=== PATIENT | female | born 1985 | race African-American/Black ===

== ENCOUNTER 2018-12-30 21:11 | Emergency (ER) | payer SELFPAY ==
--- NOTE | 2018-12-30 21:36 | EDPHYS ---
Physician Documentation [facility] Name: Kayce Ruiz Age: 33 yrs Sex: Female : 1985 Arrival Date: 12/30/2018 Time: 21:14 Bed 12 Private MD: ED Physician Tom Perez HPI: 12/30 21:34 This 33 yrs old Black Female presents to ER via Ambulatory with complaints of Ear Pain. kb 21:34 The patient presents with a foreign body sensation, pain. The complaints affect the kb right ear and left ear. Onset: The symptoms/episode began/occurred 4 month(s) ago. Modifying factors: The symptoms are alleviated by nothing, the symptoms are aggravated by touching. Associated signs and symptoms: The patient has no apparent associated signs or symptoms. Severity of symptoms: At their worst the symptoms were moderate in the emergency department the symptoms are unchanged. The patient has not experienced similar symptoms in the past. The patient has not recently seen a physician. APPLICATIONS SPECIALIST: 21:30 LMP 09/2018 fc Historical: - Allergies: 21:30 No Known Allergies; fc - Home Meds: 21:30 None [Active]; fc - PMHx: 21:30 None; fc - PSHx: 21:30 None; fc - Immunization history:: Last tetanus immunization: unknown, Flu vaccine is not up to date. - Social history:: Smoking status: Patient uses tobacco products, denies chronic smoking, but will smoke occasionally, Patient/guardian denies using alcohol, street drugs. - Ebola Screening: : Patient negative for fever greater than or equal to 101.5 degrees Fahrenheit, and additional compatible Ebola Virus Disease symptoms Patient denies exposure to infectious person Patient denies travel to an Ebola-affected area in the 21 days before illness onset. ROS: 21:34 Constitutional: Negative for fever, chills, and weight loss, Neck: Negative for injury, kb pain, and swelling, Cardiovascular: Negative for chest pain, palpitations, and edema, Respiratory: Negative for shortness of breath, cough, wheezing, and pleuritic chest pain, Abdomen/GI: Negative for abdominal pain, nausea, vomiting, diarrhea, and constipation, MS/Extremity: Negative for injury and deformity, Skin: Negative for injury, rash, and discoloration, Neuro: Negative for headache, weakness, numbness, tingling, and seizure. 21:34 ENT: Positive for ear pain. Exam: 21:34 Constitutional: This is a well developed, well nourished patient who is awake, alert, kb and in no acute distress. Head/Face: Normocephalic, atraumatic. Neck: Trachea midline, no thyromegaly or masses palpated, and no cervical lymphadenopathy. Supple, full range of motion without nuchal rigidity, or vertebral point tenderness. No Meningismus. Chest/axilla: Normal chest wall appearance and motion. Nontender with no deformity. No lesions are appreciated. Cardiovascular: Regular rate and rhythm with a normal S1 and S2. No gallops, murmurs, or rubs. Normal PMI, no JVD. No pulse deficits. Respiratory: Lungs have equal breath sounds bilaterally, clear to auscultation and percussion. No rales, rhonchi or wheezes noted. No increased work of breathing, no retractions or nasal flaring. Abdomen/GI: Soft, non-tender, with normal bowel sounds. No distension or tympany. No guarding or rebound. No evidence of tenderness throughout. Skin: Warm, dry with normal turgor. Normal color with no rashes, no lesions, and no evidence of cellulitis. MS/ Extremity: Pulses equal, no cyanosis. Neurovascular intact. Full, normal range of motion. Neuro: Awake and alert, GCS 15, oriented to person, place, time, and situation. Cranial nerves II-XII grossly intact. Motor strength 5/5 in all extremities. Sensory grossly intact. Cerebellar exam normal. Normal gait. 21:34 ENT: External ear(s): are unremarkable, Ear canal(s): swelling, that is moderate, bilaterally, TM's: are normal, Nose: is normal. Vital Signs: 21:30 BP 150 / 99; Pulse 79; Resp 18; Temp 98.8(TE); Pulse Ox 100% on R/A; Weight 54.75 kg fc (M); Height 5 ft. 4 in. (162.56 cm) (R); Pain 10/10; 21:30 Body Mass Index 20.72 (54.75 kg, 162.56 cm) fc MDM: 21:27 Patient medically screened. kb 21:33 Data reviewed: vital signs, nurses notes. Data interpreted: Pulse oximetry: on room air kb is 100 %. Interpretation: normal. Counseling: I had a detailed discussion with the patient and/or guardian regarding: the historical points, exam findings, and any diagnostic results supporting the discharge/admit diagnosis, the need for outpatient follow up, an ENT specialist, to return to the emergency department if symptoms worsen or persist or if there are any questions or concerns that arise at home. Administered Medications: No medications were administered Disposition: 23:17 Co-signature as Attending Physician, Tom Perez MD. Disposition: 12/30/18 21:35 Discharged to Home. Impression: Unspecified otitis externa, bilateral. - Condition is Stable. - Discharge Instructions: Otitis Externa, [id number], Ear Drops, Adult, [id number]. - Prescriptions for Ciprodex 0.3- 0.1 % Otic Drops, Suspension - instill 4 drop by OTIC route every 12 hours for 7 days , for ears ONLY; 1 Container. - Medication Reconciliation Form, Thank You Letter, Antibiotic Education, Prescription Opioid Use form. - Follow up: Emergency Department; When: As needed; Reason: Worsening of condition. Follow up: Private Physician; When: 2 - 3 days; Reason: Recheck today's complaints, Continuance of care, Re-evaluation by your physician. Signatures: Shanti Coles, MADALYN SMITH-Minerva Hallman RN RN Butch Frost RN RN jb4 Tom Perez MD MD Corrections: (The following items were deleted from the chart) 21:39 21:35 12/30/2018 21:35 Discharged to Home. Impression: Unspecified otitis externa, jb4 bilateral. Condition is Stable. Forms are Medication Reconciliation Form, Thank You Letter, Antibiotic Education, Prescription Opioid Use. Follow up: Emergency Department; When: As needed; Reason: Worsening of condition. Follow up: Private Physician; When: 2 - 3 days; Reason: Recheck today's complaints, Continuance of care, Re-evaluation by your physician. kb
--- NOTE | 2018-12-30 21:36 | ER ---
Nurse's Notes [facility] Name: Kayce Ruiz Age: 33 yrs Sex: Female : 1985 Arrival Date: 12/30/2018 Time: 21:14 Bed 12 Private MD: Diagnosis: Unspecified otitis externa, bilateral Presentation: 12/30 21:29 Presenting complaint: Patient states: that she is having ear pain. Left worse than fc right. Started last Transition of care: patient was not received from another setting of care. Onset of symptoms was August 2018. Risk Assessment: Do you want to hurt yourself or someone else? Patient reports no desire to harm self or others. Initial Sepsis Screen: Does the patient meet any 2 criteria? No. Patient's initial sepsis screen is negative. Does the patient have a suspected source of infection? No. Patient's initial sepsis screen is negative. Care prior to arrival: None. 21:29 Method Of Arrival: Ambulatory 21:29 Acuity: ALEXA 5 fc CASE MANAGEMENT RN: 21:30 [facility] 09/2018 Historical: - Allergies: 21:30 No Known Allergies; fc - Home Meds: 21:30 None [Active]; fc - PMHx: 21:30 None; fc - PSHx: 21:30 None; fc - Immunization history:: Last tetanus immunization: unknown, Flu vaccine is not up to date. - Social history:: Smoking status: Patient uses tobacco products, denies chronic smoking, but will smoke occasionally, Patient/guardian denies using alcohol, street drugs. - Ebola Screening: : Patient negative for fever greater than or equal to 101.5 degrees Fahrenheit, and additional compatible Ebola Virus Disease symptoms Patient denies exposure to infectious person Patient denies travel to an Ebola-affected area in the 21 days before illness onset. Screenin:31 Abuse screen: Denies threats or abuse. Nutritional screening: No deficits noted. fc Tuberculosis screening: No symptoms or risk factors identified. Fall Risk None identified. Assessment: 21:34 General: Appears in no apparent distress. uncomfortable, Behavior is calm, cooperative, jb4 appropriate for age. Pain: Complains of pain in right ear and left ear Pain does not radiate. Pain currently is 6 out of 10 on a pain scale. Neuro: Level of Consciousness is awake, alert, obeys commands, Oriented to person, place, time, situation. Cardiovascular: Patient's skin is warm and dry. Respiratory: Airway is patent Respiratory effort is even, unlabored, Respiratory pattern is regular, symmetrical. GI: No signs and/or symptoms were reported involving the gastrointestinal system. : No signs and/or symptoms were reported regarding the genitourinary system. EENT: Throat is clear is pink Reports pain in left ear and right ear. Derm: Skin is intact, Skin is dry, Skin is normal, Skin temperature is warm. Musculoskeletal: Circulation, motion, and sensation intact. Vital Signs: 21:30 BP 150 / 99; Pulse 79; Resp 18; Temp 98.8(TE); Pulse Ox 100% on R/A; Weight 54.75 kg fc (M); Height 5 ft. 4 in. (162.56 cm) (R); Pain 10/10; 21:30 Body Mass Index 20.72 (54.75 kg, 162.56 cm) ED Course: 21:14 Patient arrived in ED. es 21:16 Shanti Coles FNP-C is [facility]. kb 21:16 Tom Perez MD is Attending Physician. kb 21:28 Butch Traore, RN is Primary Nurse. jb4 21:29 Triage completed. fc 21:30 Arm band placed on Patient placed in an exam room, on a stretcher. fc 21:31 Patient has correct armband on for positive identification. Call light in reach. fc 21:38 No provider procedures requiring assistance completed. Patient did not have IV access jb4 during this emergency room visit. Administered Medications: No medications were administered Outcome: 21:35 Discharge ordered by . kb 21:38 Discharged to home ambulatory. jb4 21:38 Condition: stable 21:38 Discharge instructions given to patient, family, Instructed on discharge instructions, follow up and referral plans. medication usage, Demonstrated understanding of instructions, follow-up care, medications, Prescriptions given X 1. 21:39 Patient left the ED. jb4 Signatures: Shanti Coles FNP-C FNP-Ckb Salyer, Edna es Chretien, Felicia, RN RN Butch Traore, RN RN jb4
== END 2018-12-30 21:39 | disposition home or self-care (01) ==
LOC: ER 21:11
DX: H60.93 Unspecified otitis externa, bilateral (principal)
CPT/HCPCS: 99282

== ENCOUNTER 2019-03-22 19:01 | Emergency (ER) | payer SELFPAY ==
--- OUTSIDE RECORDS SUMMARY | 2019-03-22 19:03 | XMS REPORT ---
:1985 [facility] Address [address] [place] [address] Dr. Lemon. [address] [place] [id number] Care Team Providers Name Role Phone Unavailable Unavailable Unavailable Problems This patient has no known problems. Allergies, Adverse Reactions, Alerts This patient has no known allergies or adverse reactions. Medications This patient has no known medications.
[2019-03-22] MEDS ORDERED: HYDROCODONE/APAP 5/325 MG TAB ONE (19:49)
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
== END 2019-03-22 20:32 | disposition home or self-care (01) ==
LOC: ER 19:01
DX: T20.57XA Corrosion of first degree of neck, initial encounter (principal); T65.891A Toxic effect of other specified substances, accidental (unintentional), initial encounter; Y92.89 Other specified places as the place of occurrence of the external cause
CPT/HCPCS: 99283

== ENCOUNTER 2024-11-19 21:10 | Emergency (ER) | payer SELFPAY ==
--- OUTSIDE RECORDS SUMMARY | 2024-11-19 21:13 | XMS REPORT | Continuity of Care Document ---
Author Name Unknown Address [address] [facility] [address] [place] [id number] [facility] [address] [facility] [address] [place] [address] Care Team Providers Care Supervisor Cartography Name Role Phone PCP, PATIENT DOES NOT HAVE A Primary Care Physic saray ALESIA Rose Attending Clinician Unavailable [email or web address] Attending Clinician Unavaila ble [email or web address] Admitting Clinician Unavaila ble Payers Payer Name Policy Type Policy Number Effective Date Expirati on Date Source [id number] 2019 00:00:00 Allergies, Adverse Reactions, Alerts Allergy Name Allergy Type Status Severity Reaction(s) Onset Date Inactive Date Treating Clinician Comments Source NO KNOWN ALLERGIE S Drug Class Active [facility] Social History Social Habit Start Date Stop Date Quantity Comments Source Sexual [facility] Tobacco use and exposure 2024-04-09 00:00:00 2024-04-09 00:00:00 User of smokeless tobacco [facility] Alcoholic beverage intake 2024-04-09 00:00:00 2024-04-09 00:00:00 Lifetime non-drinker (finding) [facility] History of Social function 2024-04-09 00:00:00 2024-04-09 00:00:[address] [facility] Tobacco Comment 2024-04-09 00:00:00 2024-04-09 00:00:00 Daily vaping x [address] [facility] Sex assigned at 1985 00:00:00 1985 00:00:[address] [facility] Smoking Status Start Date Stop Date Source Never smoked tobacco [facility] Medications Ordered Medication Name Filled Medication Name Start Date Stop Date Current Medication? Ordering Clinician Indication Dosage Frequency Signature (SIG) Comments Components Source metroNIDAZO LE 500 mg tablet 04-13 00:00: 00 Yes [id number] 500mg Take 1 tablet by mouth every 12 (twelve) hours. [facility] Vital Signs Vital Name Observation Time Observation Value Comments S mata Systolic blood pressure 2024-04-09 14:53:00 140 mm[Hg] [facility] Diastolic blood pressure 2024-04-09 14:53:00 83 mm[Hg] [facility] Heart rate 2024-04-09 14:40:00 80 /min [facility] Body temperature 2024-04-09 14:40:[address] [facility] Respiratory rate 2024-04-09 14:40:00 18 /min [facility] Body height 2024-04-09 14:40:00 167.6 cm [facility] Body weight 2024-04-09 14:40:00 80.015 kg [facility] BMI 2024-04-09 14:40:00 28.47 kg/m2 [facility] Encounters Start Date/Time End Date/Time Encounter Type Admission Type Attending [facility] Care Facility Care Department Encounter ID Source 2024-07-14 09:15:00 2024-07-14 09:15:00 Outpatient ALESIA ROTHMAN [facility] [id number] [facility] 2024-04-13 00:00:00 2024-04-13 09:07:03 Telephone Alesia Higgins [facility] [id number] [facility] 2024-04-09 09:30:00 2024-04-09 10:41:12 Outpatient ALESIA ROTHMAN [facility] [id number] [facility] 2024-04-09 09:30:00 2024-04-09 10:41:12 Office Visit Alesia Higgins [facility] [id number] [facility] 2023-08-15 00:00:00 2023-08-15 00:00:00 Outpatient [email or web address] clara_Delmar [facility] [id number] [facility]
[2024-11-19] MEDS ORDERED: ONDANSETRON 4 MG/2 ML VIAL ONE (21:31)
[2024-11-19] MEDS ORDERED: NA CHLORIDE 0.9% 1,000 ML ONE (21:31)
[2024-11-19 21:35] LABS: Absolute Basophils 0.1 K/uL (0-0.5); Absolute Eosinophils 0.3 K/uL (0-0.5); Absolute Lymphocytes (CBC) 3.9 K/uL (0.7-4.9); Absolute Monocytes 0.6 K/uL (0.1-1.3); Absolute Neutrophil 7.9 K/uL (1.8-8.0); Basophils % 0.6 % (0-1.3); Eosinophils % 2.3 % (0-4.4); Hematocrit 33.3 % (36.0-45.0); Hemoglobin 11.3 g/dL (12.0-15.0); Lymphocytes % 30.4 % (15.3-44.8); MCH 31.1 pg (27.0-35.0); MCV 91.4 fL (80-100); MPV 8.3 fL (7.6-11.3); Neutrophils % 61.7 % (41.7-73.7); Platelets 306 thou/uL (152-406); RBC Red Blood Cell Count 3.65 M/uL (3.86-4.86); Red Cell Distribution Width 13.3 % (12.1-15.2)
[2024-11-20 00:09] LABS: Specific Gravity 1.013 (1.005-1.030); Urine Bacteria <20 /HPF (<20); Urine Bilirubin NEGATIVE (Negative); Urine Blood Negative (Negative); Urine Clarity Turbid (Clear); Urine Color Colorless (Yellow); Urine Culture Reflex Order NOT NEEDED; Urine Glucose NEGATIVE (Negative); Urine Ketones NEGATIVE (Negative); Urine Microscopic Reflex YN ORDER UMIC; Urine Mucus Slight /HPF (None Seen); Urine Nitrite NEGATIVE (Negative); Urine Protein NEGATIVE (Negative); Urine RBC <5 /HPF (None Seen); Urine Urobilinogen Normal (Normal); Urine WBC <5 /HPF (<5); Urine pH 6.5 (5.0-7.0)
[2024-11-20 00:23] LABS: Barbiturates NEGATIVE (NEGATIVE); Benzodiazepines NEGATIVE (NEGATIVE); Cocaine NEGATIVE (NEGATIVE); METHAMPHETAM NEGATIVE (NEGATIVE); Methadone NEGATIVE (NEGATIVE); Opiates NEGATIVE (NEGATIVE); Phencyclidine NEGATIVE (NEGATIVE); THC Cannibis POSITIVE (NEGATIVE)
[2024-11-20] MEDS ORDERED: POTASSIUM CL SA 10 MEQ TAB PO ONE (00:30)
--- NOTE | 2024-11-20 00:43 | EDPHYS ---
Physician Documentation [facility] Name: Kayce Ruiz Age: 38 yrs Sex: Female : 1985 Arrival Date: 11/19/2024 Time: 21:10 Bed 8 Private MD: ED Physician Solomon Hernandez HPI: 11/19 21:34 This 38 yrs old Black Female presents to ER via EMS with complaints of Nausea/Vomiting bo1 - ingesting ETOH \\T\\ THC. 11/20 00:29 The patient presents to the emergency department with nausea, vomiting. Onset: The bo1 symptoms/episode began/occurred just prior to arrival. Associated signs and symptoms: Pertinent negatives: abdominal pain. Pt took an edible of THC and drank some ETOH. 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 - Infectious Disease History:: Denies. - Social history:: Smoking status: Patient denies any tobacco usage or history of. Patient uses gummies. ROS: 11/20 00:31 Constitutional: Negative for fever, chills, and weight loss bo1 Cardiovascular: Negative for chest pain, Respiratory: Negative for shortness of breath, Abdomen/GI: Positive for nausea and vomiting, Negative for abdominal pain, MS/extremity: Negative for pain, Skin: Negative for rash, All other systems are negative, Exam: 11/19 21:33 ECG was reviewed by the Attending Physician. bo1 11/20 00:37 Constitutional: This is a well developed, well nourished patient who is awake, alert, bo1 and in acute distress. Constitutional: The patient appears alert, awake, non-toxic, in obvious distress, mildly distressed, Neck: Exam negative for acute changes, Cardiovascular: Rate: normal, Rhythm: regular, Pulses: no pulse deficits are appreciated, Respiratory: the patient does not display signs of respiratory distress, Respirations: normal, Breath sounds: are clear throughout, Abdomen/GI: Palpation: abdomen is soft and non-tender, Neuro: Orientation: is normal, Mentation: is normal, Slightly sedate and "slow" due to the combination of THC and ETOH, Vital Signs: 11/19 21:10 BP 134 / 86; Pulse 77; Resp 15; Temp 98.5; Pulse Ox 100% ; Weight 77.11 kg; Height 5 bm8 ft. 4 in. ; Pain 0/10; 23:09 BP 150 / 92; Pulse 94; Resp 17; Temp 98.5; Pulse Ox 100% ; Pain 0/10; 8 11/20 00:16 BP 137 / 86; Pulse 88; Resp 18; Temp 98.5; Pulse Ox 100% on R/A; Pain 0/10; 8 00:58 BP 133 / 79; Pulse 90; Resp 18; Temp 98.5; Pulse Ox 100% ; Pain 0/10; 8 11/19 21:10 Body Mass Index 29.18 (77.11 kg, 162.56 cm) [facility] 11/19 21:10 Pain Scale: Adult bm8 23:09 Pain Scale: Adult 8 11/20 00:16 Pain Scale: Adult bm8 00:58 Pain Scale: Adult bm8 [place] Coma Score: 11/19 21:36 Eye Response: spontaneous(4). Motor Response: obeys commands(6). Verbal Response: bm8 oriented(5). Total: 15. 23:09 Eye Response: spontaneous(4). Motor Response: obeys commands(6). Verbal Response: bm8 oriented(5). Total: 15. 11/20 00:58 Eye Response: spontaneous(4). Motor Response: obeys commands(6). Verbal Response: bm8 oriented(5). Total: 15. MDM: 11/19 21:14 Medical Screening Exam initiated bo1 11/20 00:38 Differential diagnosis: Polychemical ingestion with symptoms. Data reviewed: vital bo1 signs, lab test result(s). Medication response: Response to treatment: the patient's symptoms have markedly improved after treatment. ED course: Pt is more alert and is detoxing and due to ETOH less than 80 she can be discharged. 11/19 21:16 Order name: Basic Metabolic Panel; Complete Time: 00:28 bo1 11/19 21:16 Order name: CBC with Diff; Complete Time: 00:28 bo1 11/19 21:16 Order name: Troponin HS; Complete Time: 00: 11/19 21:16 Order name: Urinalysis w/ reflexes; Complete Time: : 11/19 21:16 Order name: UDS; Complete Time: :11/19 21:16 Order name: ETOH Level; Complete Time: 00: 11/19 21:16 Order name: EKG; Complete Time: 21:17 11/19 21:16 Order name: Cardiac monitoring; Complete Time: : 11/19 21:16 Order name: EKG - Nurse/Tech; Complete Time: : 11/19 21:16 Order name: IV Saline Lock; Complete Time: 11/19 21:16 Order name: Labs collected and sent; Complete Time: EC/31 21:33 Rate is 73 beats/min. Rhythm is regular. QRS [place] is Normal. IL interval is normal. QRS bo1 interval is normal. QT interval is normal. No Q waves. T waves are Normal. No ST changes noted. Clinical impression: NSR w/ Non-specific ST/T Changes. Interpreted by me. Reviewed by me. Administered Medications: 21:36 Drug: Ondansetron IVP 4 mg IVP once; over 2 minutes Route: IVP; Site: right antecubital;8 11/20 00:34 Follow up: Response: No adverse reaction [facility] 11/19 21:36 Drug: NS 0.9% IV 1000 ml IV at 1 bolus Per protocol; to be given as a bolus over 60 bm8 minutes Route: IV; Rate: 1 bolus; Site: right antecubital; 11/20 00:34 Follow up: Response: No adverse reaction; IV Status: Completed infusion; IV Intake: bm8 1000ml 00:33 Drug: Potassium Chloride PO 40 mEq PO once Route: PO; bm8 00:59 Follow up: Response: No adverse reaction bm8 Disposition Summary: 11/20/24 00:42 Discharge Ordered Notes: Location: Home bo1 Problem: new bo1 Symptoms: have improved bo1 Condition: Stable bo1 Diagnosis - Alcohol abuse with intoxication bo1 - Adverse effect of other psychotropic drugs bo1 - Nausea with vomiting, unspecified bo1 Followup: bo1 - With: Private Physician - When: Upon discharge from the Emergency Department - Reason: If symptoms return, Recheck today's complaints, Continuance of care Discharge Instructions: - Discharge Summary Sheet bo1 - Nausea and Vomiting, Adult bo1 - Accidental Drug Poisoning, Adult bo1 - Alcohol Intoxication, [id number] bo1 Forms: - Medication Reconciliation Form bo1 - Antibiotic Education bo1 - Prescription Opioid Use bo1 - Patient Portal Instructions bo1 - Leadership Thank You Letter bo1 Prescriptions: - ondansetron 8 mg Oral Tablet,disintegrating - take 1 tablet ORAL route every 8 hours; 15 tablet; Refills: 0, Product bo1 Selection Permitted Signatures: Dispatcher [employer] EDMS Solomon Hernandez MD MD bo1 Sagar Turner, RN RN bm8 Corrections: (The following items were deleted from the chart) 11/19 21:17 21:16 BASIC METABOLIC PANEL+C.LAB.BRZ ordered. EDMS EDMS 21:17 21:16 CBC+H.LAB.BRZ ordered. EDMS EDMS 21:17 21:16 Troponin High Sensitivity+C.LAB.BRZ ordered. EDMS EDMS 21:17 21:16 Urinalysis+U.LAB.BRZ ordered. EDMS EDMS 21:17 21:16 URINE DRUG SCREEN+UC.LAB.BRZ ordered. EDMS EDMS
--- NOTE | 2024-11-20 00:43 | ER ---
Nurse's Notes [facility] Name: Kayce Ruiz Age: 38 yrs Sex: Female : 1985 Arrival Date: 11/19/2024 Time: 21:10 Bed 8 Private MD: Diagnosis: Alcohol abuse with intoxication;Adverse effect of other psychotropic drugs;Nausea with vomiting, unspecified Presentation: 11/19 21:10 Chief complaint: EMS states: pt ate some gummies for the first time,reports n/v and ams bm8 but will answer name and obey commands. 21:10 Coronavirus screen: At this time, the client does not indicate any symptoms associated bm8 with coronavirus-19. Ebola Screen: Patient negative for fever greater than or equal to 101.5 degrees Fahrenheit, and additional compatible Ebola Virus Disease symptoms Patient denies exposure to infectious person. Patient denies travel to an Ebola-affected area in the 21 days before illness onset. No symptoms or risks identified at this time. Initial Sepsis Screen: Does the patient meet any 2 criteria? No. Patient's initial sepsis screen is negative. Does the patient have a suspected source of infection? No. Patient's initial sepsis screen is negative. Risk Assessment: Do you want to hurt yourself or someone else? Patient reports no desire to harm self or others. Onset of symptoms was November 19, 2024 at 19:00. 21:10 Method Of Arrival: EMS: [facility] bm8 21:10 Acuity: ALEXA 3 bm8 Triage Assessment: 21:34 General: Appears in no apparent distress. comfortable, Behavior is calm, cooperative, bm8 appropriate for age. Pain: Denies pain. EENT: No deficits noted. No signs and/or symptoms were reported regarding the EENT system. Neuro: Level of Consciousness is awake, obeys commands, stuporous, Oriented to person, situation. Cardiovascular: Denies chest pain, Heart tones S1 S2 present Capillary refill < 3 seconds in bilateral fingers Patient's skin is warm and dry. Rhythm is sinus rhythm. Respiratory: Airway is patent Trachea midline Respiratory effort is even, unlabored, Respiratory pattern is regular, symmetrical, Breath sounds are clear bilaterally. GI: Abdomen is flat, non-distended, Bowel sounds present X 4 quads. Abd is soft and non tender Reports nausea, vomiting. : No signs and/or symptoms were reported regarding the genitourinary system. Derm: No signs and/or symptoms reported regarding the dermatologic system. Musculoskeletal: No signs and/or symptoms reported regarding the musculoskeletal system. 11/20 00:16 General: Appears in no apparent distress. comfortable, Behavior is calm, cooperative, bm8 appropriate for age, drowsy, quiet. Pain: Denies pain. EENT: No deficits noted. No signs and/or symptoms were reported regarding the EENT system. Neuro: Level of Consciousness is awake, obeys commands, Oriented to person, place, situation. Neuro: Cardiovascular: Denies chest pain, Heart tones S1 S2 present Capillary refill Patient's skin is warm and dry. Rhythm is sinus rhythm. GI: Abdomen is flat, non-distended, Bowel sounds present X 4 quads. Abd is soft and non tender X 4 quads. Reports nausea, Reports nausea has improved. : No signs and/or symptoms were reported regarding the genitourinary system. Derm: No signs and/or symptoms reported regarding the dermatologic system. Musculoskeletal: No signs and/or symptoms reported regarding the musculoskeletal system. 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 - Infectious Disease History:: Denies. - Social history:: Smoking status: Patient denies any tobacco usage or history of. Patient uses gummies. Screenin:[address] [facility] ED Fall Risk Assessment (Adult) History of falling in the last 3 months, bm8 including since admission No falls in past 3 months (0 pts) Confusion or Disorientation Yes (5 pts) Intoxicated or Sedated Yes (3 pts) Impaired Gait Yes (1 pt) Mobility Assist Device Used No (0 pt) Altered Elimination No (0 pt) Score/Fall Risk Level 3 or more points = High Risk Oriented to surroundings, Maintained a safe environment, Educated pt \T\ family on fall prevention, incl call for assistance when getting out of bed, Assessed \T\ reinforced patient's understanding of fall precautions, Hourly rounding (assess needs \T\ fall precautionary measures) done, Used ambulatory aids as needed (educated on \T\ assisted with), Used gait belt as appropriate Implemented a Fall Risk Plan of Care. Abuse screen: Denies threats or abuse. Nutritional screening: No deficits noted. Tuberculosis screening: No symptoms or risk factors identified. Assessment: 23:09 Reassessment: Patient appears in no apparent distress at this time. Patient and/or bm8 family updated on plan of care and expected duration. Pain level reassessed. Patient is alert, oriented x 3, equal unlabored respirations, skin warm/dry/pink. Patient denies pain at this time. Patient states feeling better. Patient states symptoms have improved. GI: Patient currently denies nausea, pain, vomiting. 11/20 00:34 Reassessment: Patient appears in no apparent distress at this time. Patient and/or bm8 family updated on plan of care and expected duration. Pain level reassessed. Patient is alert, oriented x 3, equal unlabored respirations, skin warm/dry/pink. Patient denies pain at this time. Patient states feeling better. Patient states symptoms have improved. GI: Patient currently denies nausea, pain, vomiting. Vital Signs: 11/19 21:10 BP 134 / 86; Pulse 77; Resp 15; Temp 98.5; Pulse Ox 100% ; Weight 77.11 kg; Height 5 bm8 ft. 4 in. ; Pain 0/10; 23:09 BP 150 / 92; Pulse 94; Resp 17; Temp 98.5; Pulse Ox 100% ; Pain 0/10; 8 11/20 00:16 BP 137 / 86; Pulse 88; Resp 18; Temp 98.5; Pulse Ox 100% on R/A; Pain 0/10; bm8 00:58 BP 133 / 79; Pulse 90; Resp 18; Temp 98.5; Pulse Ox 100% ; Pain 0/10; [facility] 11/19 21:10 Body Mass Index 29.18 (77.11 kg, 162.56 cm) [facility] 11/19 21:10 Pain Scale: Adult bm8 23:09 Pain Scale: Adult bm8 11/20 00:16 Pain Scale: Adult bm8 00:58 Pain Scale: Adult bm8 [place] Coma Score: 11/19 21:36 Eye Response: spontaneous(4). Motor Response: obeys commands(6). Verbal Response: bm8 oriented(5). Total: 15. 23:09 Eye Response: spontaneous(4). Motor Response: obeys commands(6). Verbal Response: bm8 oriented(5). Total: 15. 11/20 00:58 Eye Response: spontaneous(4). Motor Response: obeys commands(6). Verbal Response: bm8 oriented(5). Total: 15. ED Course: 11/19 21:13 Patient arrived in ED. vc1 21:14 Solomon Hernandez MD is Attending Physician. bo1 21:31 Sagar Turner, JUAN C is Primary Nurse. bm8 21:33 Triage completed. bm8 21:34 Arm band placed on left wrist. bm8 21:36 Patient has correct armband on for positive identification. Placed in gown. Bed in low bm8 position. Call light in reach. Side rails up X2. Client placed on continuous cardiac and pulse oximetry monitoring. NIBP monitoring applied. town manager on. Pulse ox on. NIBP on. Door closed. Noise minimized. Warm blanket given. Pillow given. Verbal reassurance given. Head of bed elevated. 21:36 No provider procedures requiring assistance completed. Initial lab(s) drawn, by flory busby sent to lab. EKG done, by ED staff, reviewed by Solomon Hernandez MD. Inserted saline lock: 20 gauge in right antecubital area, using aseptic technique. Blood collected. Flushed with 10 mL NS. Patient maintains SpO2 saturation greater than 95% on room air. 11/20 00:58 Provided Education on: post er care. bm8 00:58 IV discontinued, intact, bleeding controlled, No redness/swelling at site. Pressure bm8 dressing applied. Administered Medications: 11/19 21:36 Drug: Ondansetron IVP 4 mg IVP once; over 2 minutes Route: IVP; Site: right antecubital;bm8 11/20 00:34 Follow up: Response: No adverse reaction bm8 11/19 21:36 Drug: NS 0.9% IV 1000 ml IV at 1 bolus Per protocol; to be given as a bolus over 60 bm8 minutes Route: IV; Rate: 1 bolus; Site: right antecubital; 11/20 00:34 Follow up: Response: No adverse reaction; IV Status: Completed infusion; IV Intake: bm8 1000ml 00:33 Drug: Potassium Chloride PO 40 mEq PO once Route: PO; bm8 00:59 Follow up: Response: No adverse reaction bm8 Medication: 11/19 21:36 VIS not applicable for this client. bm8 Intake: 11/20 00:34 IV: 1000ml; Total: 1000ml. bm8 Outcome: 00:42 Discharge ordered by . bo1 00:58 Discharged to home ambulatory, bm8 00:58 Condition: stable 00:58 Discharge instructions given to patient, family, Instructed on discharge instructions, follow up and referral plans. medication usage, safety practices, Demonstrated understanding of instructions, follow-up care, medications, Prescriptions given X 1, 01:00 Patient left the ED. bm8 Signatures: Camilla Marina RN RN vc1 Solomon Hernandez MD MD bo1 Sagar Turner RN RN bm8
[2024-11-20 01:12] VITALS: TEMP 98.5; O2SAT 100
[2024-11-20 01:17] VITALS: BP 133/79
--- NOTE | 2024-11-23 12:25 | EKG ---
Test Date: 2024-11-19 Test Time: 21:17:55 Crime Specialist: TO MEASUREMENT RESULTS: Intervals: Rate: 73 AK: 150 QRSD: 84 QT: 408 QTc: 449 [place]: P: 38 AK: 150 QRS: 61 T: 50 INTERPRETIVE STATEMENTS: Normal sinus rhythm Nonspecific ST and T wave abnormality Abnormal ECG Compared to ECG 05/25/2005 13:31:00 ST (T wave) deviation now present Sinus bradycardia no longer present Electronically Signed On 11-23-24 12:19:21 OFFICE MACHINERY OR EQUIPMENT INSTALLER by Yoandy Gamboa
== END 2024-11-20 01:00 | disposition home or self-care (01) ==
LOC: ER 21:10
DX: F10.129 Alcohol abuse with intoxication, unspecified (principal); T43.8X5A Adverse effect of other psychotropic drugs, initial encounter
CPT/HCPCS: 36415; 80048; 80307; 81001; 82077; 84484; 85025; 93005; 96361; 96374; 99285; J2405; J7030